=== PATIENT | female | born 1970 | race Caucasian/White ===

== ENCOUNTER 2017-01-10 09:17 | Day surgery (SDC) | payer MEDICAID, OTHER ==
[2017-01-09 14:13] VITALS: BMI 34.8
[2017-01-10] VITALS (12 sets, daily range): BP systolic 112–137; BP diastolic 59–76; PULSE 67–96; RESP 16–25; Ht 160 cm; Wt 89.0 kg
[~2017-01-10] VITALS: Ht 160 cm; Wt 89.0 kg
[~2017-01-10 09:17] MED LIST: NO MEDS
[2017-01-10] MEDS ORDERED: ROPIVACAINE 0.5 % 30 ML VIAL ONE (10:58)
[2017-01-10] MEDS ORDERED: MIDAZOLAM 1 MG/ML 2 ML INJ ONE (10:58)
[2017-01-10] MEDS ORDERED: PROPOFOL 20 ML ONE (11:59)
[2017-01-10] MEDS ORDERED: SUCCINYLCHOLINE CHLORIDE 100 MG/5 ML SYG IV ONE (11:59)
[2017-01-10] MEDS ORDERED: ROCURONIUM 50 MG INJ ONE (11:59)
[2017-01-10] MEDS ORDERED: CEFAZOLIN 1 GM INJ ONE (11:59)
[2017-01-10] MEDS ORDERED: LIDOCAINE 2% (SDV) 5 ML INJ ONE (11:59)
[2017-01-10] MEDS ORDERED: EPINEPHrine 1 MG/ML 30 ML INJ ONE (12:04)
[2017-01-10] MEDS ORDERED: EPINEPHrine 1 MG/ML 30 ML INJ IRR ONE (12:24)
[2017-01-10] MEDS ORDERED: FENTAnyl 50 MCG/ML VIAL IV PRN ×2 (12:30)
[2017-01-10] MEDS ORDERED: DIPHENHYDRAMINE 50 MG INJ IV PRN (12:30)
[2017-01-10] MEDS ORDERED: METOCLOPRAMIDE 10 MG INJ IV PRN (12:30)
[2017-01-10] MEDS ORDERED: MEPERIDINE 25 MG INJ IV PRN (12:30)
[2017-01-10] MEDS ORDERED: ONDANSETRON 4 MG INJ IV PRN ×2 (12:30→13:30)
[2017-01-10] MEDS ORDERED: SUGAMMADEX SODIUM 200 MG/2 ML VIAL IV ONE (13:00)
--- NOTE | 2017-01-10 13:15 | OPR ---
Date/Time of Note Date/Time of Note DATE: 01/10/17 TIME: 13:08 Operative Report Free Text/Dictation Pre Op Dx: Right shoulder rotator cuff tear, impingement syndrome Post Op Dx: Same Procedure: #1 right shoulder arthroscopy #2 subacromial decompression #3 rotator cuff repair Surgeon: Raffy Kirk Clinical Document Improvement Educator: None Anesthesiologist: Dr. Leon EBL: Minimal Date of Surgery: January 10, 2017 Complications: None Operative Findings: Full-thickness tear along the anterior aspect of supraspinatus tendon. There was also a moderate sized spur on the undersurface of the acromion. Implants: Arthrex anchors Indications for Procedure: Ms. Fern Vaca is a 46-year-old female who has had progressive pain in her right shoulder. She has failed nonoperative treatment. She now presents for the above listed procedure. Risks and benefits were discussed risks including but not limited to infection bleeding hardware failure hardware prominence re-tear shoulder stiffness along with other medical anesthetic and surgical complications were discussed Description of Procedure: The patient was brought to the operating room she had preoperative antibiotics administered. She then had interscalene block placed. She was then positioned on the shoulder table in the beach chair position. The right shoulder and upper extremity are prepped and draped in the standard sterile manner. I then performed a posterior portal incision introduced the arthroscope into the glenohumeral joint. A diagnostic arthroscopy was performed. The subscapularis tendon was intact the glenohumeral joint was intact the superior labrum was intact. Upon abduction external rotation a full- thickness tear was found along the supraspinatus tendon. An anterolateral cannula was placed through a portal incision. I then debrided the footprint in this area. I then put a Arthrex 5.5 mm bio corkscrew anchor. I then went in the subacromial space. A thorough bursectomy was performed. A large spur was found in the undersurface the acromion. A lateral incision was made. A 5.5 mm oblong bur was used to do a thorough decompression. At this point the forelimbs from the Bio-Corkscrew anchor was were placed through a scorpion device. I then tied the sutures and used a double row technique using 4.75 swivel lock anchors from Arthrex to apply compression on the superior aspect of the cuff. This allowed me to do a solid watertight repair. I went back on the articular side and the footprint was fully covered with the repaired cuff tissue. I took out all instruments close the portal sites with 3-0 nylon stitches dry sterile dressings applied patient was placed in a sling she was extubated and transported to the recovery room in stable condition end of dictation. RAFFY KIRK MD Jan 10, 2017 13:15
--- NOTE | 2017-01-10 13:16 | HPN ---
Date/Time of Note Date/Time of Note DATE: 01/10/17 TIME: 13:15 Interval H&P Admission Note Pt. seen H&P reviewed: No system changes RAFFY KIRK MD Jan 10, 2017 13:16
[2017-01-10] MEDS ORDERED: morphine 10 MG INJ IV PRN (13:30)
== END 2017-01-10 16:40 | disposition home or self-care (01) ==
LOC: SDS 09:17
PROVIDERS: ATTEND Specialist
DX: M75.121 Complete rotator cuff tear or rupture of right shoulder, not specified as traumatic (principal); M75.41 Impingement syndrome of right shoulder; E66.9 Obesity, unspecified; Z68.34 Body mass index [BMI] 34.0-34.9, adult; Z88.6 Allergy status to analgesic agent
CPT/HCPCS: 29826; 29827; 84703; C1713; J0171; J0690; J2250; J2405; J2795; Z7512; Z7610; J7999

== ENCOUNTER → 2017-01-30 | Outpatient (CLI) | payer OTHER ==
[~2017-01-30] MED LIST changes: +APRACLONIDINE 1% 0.1 ML OPH ONE; -NO MEDS; +PILOCARPINE 2% 15ML OPH ONE; +PROPARACAINE 0.5% 15 ML OPH ONE
== END | disposition home or self-care (01) ==
LOC: RAD 09:38
PROVIDERS: ATTEND Ophthalmology
DX: H40.20X0 Unspecified primary angle-closure glaucoma, stage unspecified (principal)
CPT/HCPCS: 66761; Z7610